=== PATIENT | female | born 1950 | race Two or more races ===

== ENCOUNTER → 2016-06-12 | Day surgery (SDC) | payer MEDICARE, OTHER ==
--- NOTE | 2016-06-11 17:59 | Pre-op HX & Phy Repo 2 SIG ---
DATE OF ADMISSION: 06/12/2016 DATE OF SURGERY: 06/12/2016 PREOPERATIVE DIAGNOSIS: Vitreous hemorrhage with aphakia left eye. BRIEF NOTE: This is a first [facility] admission for the patient who is a very nice 66-year-old lady complained of poor vision in the left eye. She had cataract surgery on that side several days ago which was complicated by vitreous hemorrhage and during the operation no lens implant was placed. She has a past history of severe diabetes with hypertension, elevated cholesterol. She is on dialysis. She is currently on atorvastatin, famotidine, gabapentin, Cynthia-Nevaeh, and ALLERGIES: She has no known allergies. SOCIAL HISTORY: She does not smoke or drink. PHYSICAL EXAMINATION: Best vision at the time of visit was light perception with projection in the right eye and bare light perception in the left. Pressures were 17 and 8. The anterior segment on the right showed a very dense nuclear sclerotic cataract. On the left, the anterior chamber was aphakic. There was a pterygium. No evidence of rubeosis was seen. The right fundus showed scattered old laser scars and a mild vitreous hemorrhage. The left could not be seen because of the dense hemorrhage. An ultrasound was done and showed a dense vitreous hemorrhage in the left eye but the retina appeared flat. ASSESSMENT: Severe diabetic vitreous hemorrhage, left eye with aphakia. PLAN: The plan is to perform a pars plana vitrectomy with membrane dissection as needed, Endolaser and Avastin injection, and insertion of a secondary lens implant. The risks and benefits of surgery gone over the patient with potential for infection, recurrent hemorrhage, retinal detachment, glaucoma, less than anticipated vision due to diabetic changes, the possibility of loss of the eye. The risk of anesthesia was discussed. The patient understands and consents to the surgery, which will be performed on tomorrow morning. Kenneth Overton M.D. DR: Shahnaz JOB#: [id number] CC:
[2016-06-12] VITALS (10 sets, daily range): BP systolic 151–201; BP diastolic 53–72
[~2016-06-12] VITALS: Ht 157.5 cm; Wt 50.8 kg
[~2016-06-12] MED LIST: ATORVASTATIN CA20 MG ORAL; Alfentanil 2ml Inj ONE; Atropine Inj 1mg/10ml Syr IV PRN; Avastin 10mg Inj IVITRE ONE; BSS 15ml BTL ONE; BSS 500ml btl ONE; Bupivacaine 0.75% 30ml vial INJ ONE; CALCIUM ACETAT667 M1 PO; COLY-MYCIN S OT10 ML OT; Carbachol 0.01% Op Soln 1.5ml vial ONE; Dexamethasone 4mg/ml vial ONE; DiphenhydrAMINE 50mg/ml Inj IVP PRN; EPINEPHrine 1mg/1ml Amp ONE; FAMOTIDINE20 MG ORAL; Hydromorphone 0.5mg/0.5ml inj IVP PRN; Kenalog-10 5ml Inj ONE; Kenalog-40 1ml Vial ONE; LORazepam Inj 2mg/ml 1ml IV PRN; LR 1000ml 1,000 ML IVLG SCH; Labetalol 5mg/ml 20ml vial IV PRN; Lidocaine 1% MPF 10mg/ml 5ml ONE; Lidocaine 2% MPF 5ml Vial INJ ONE; Maxitrol Opth Oint 3.5gm ONE; Meperidine 25mg/ml Inj IV PRN; Metoclopramide 10mg/2ml Inj IVP PRN; Midazolam 2mg/2ml Inj IVP PRN; Midazolam 2mg/2ml Inj ONE; NORMODYNE100 MG ORAL; NS Irrig 1000ml ONE; Norco 5mg/325mg tab ORAL PRN; Norco 7.5mg/325mg tab ORAL PRN; Oxycodone/Acetaminophen 5-325 ORAL PRN; Pilocarpine 2% Opth Soln ONE; Povidone-Iodine 5% opth solution ONE; Pred Forte 1% Opth Susp 1ml LEFT EYE ONE; Propofol 10mg/ml 20ml IV ONE; RENA-VITE RX T1 EAC1 PO; Sodium Hyaluronate 10 mg/ml 0.85ml ONE; Sterile Water Irrig 1000ml IRRIG ONE; Tetracaine 0.5% Opth Soln ONE; fentaNYL 100 mcg/2 mL IV PRN
--- NOTE | 2016-06-12 06:18 | Pre-Procedure Note/Attestation ---
Pre-Procedure Note/Attestation Complete Prior to Procedure Planned Procedure: left Procedure Narrative: PPV, membrane peel, endolaser, Avastin injection, placement of AC lens, left eye Indications for Procedure Pre-Operative Diagnosis: Vitreous heme with traction, aphakia, L eye Attestation I attest that I discussed the nature of the procedure; its benefits; risks and complications; and alternatives (and the risks and benefits of such alternatives ), prior to the procedure, with the patient (or the patient's legal financial foundations representative). I attest that, if there was a reasonable possibility of needing a blood transfusion, the patient (or the patient's legal financial foundations representative) was given the [place] [employer] standardized written summary, pursuant to the Taiwo Luan Blood Safety Act ([place] Health and Safety Code # 1645, as amended). I attest that I re-evaluated the patient just prior to the surgery and that there has been no change in the patient's H&P, except as documented below: MICHAEL FERRER Jun 12, 2016 06:18
[2016-06-12] MEDS: Phenylephrine 2.5% Op Soln LEFT EYE SCH ×3 (07:10→08:09)
[2016-06-12] MEDS: Flurbiprofen 0.03% Opth Sol 2.5ml LEFT EYE SCH ×3 (07:10→08:09)
[2016-06-12] MEDS: Cyclopentolate 1% Opth Sol LEFT EYE SCH ×3 (07:10→08:09)
[2016-06-12] MEDS: Gatifloxacin Opth Solution 0.5% LEFT EYE SCH ×3 (07:10→08:09)
[2016-06-12 07:38] LABS: BASOPHILS % (AUTO) 2.5 % (0.0-2.0); EOSINOPHILS % (AUTO) 3.6 % (0.0-3.0); MEAN CORPUSCULAR HGB CONC 32.8 G/DL (32.0-36.0); MEAN CORPUSCULAR VOLUME 104 FL (80-99); MEAN PLATELET VOLUME 5.8 FL (6.5-10.1); MONOCYTES % (AUTO) 16.3 % (1.0-10.0); NEUTROPHILS % (AUTO) 55.6 % (45.0-75.0); PLATELET COUNT 137 K/UL (150-450); RED BLOOD COUNT 3.62 M/UL (4.20-5.40); RED CELL DISTRIBUTION WIDTH 17.1 % (11.6-14.8); WHITE BLOOD COUNT 3.8 K/UL (4.8-10.8)
[2016-06-12 07:52] LABS: CALCIUM 8.3 mg/dL (8.6-10.2); CREATININE 7.2 mg/dL (0.5-0.9); GLOMERULAR FILTRATION RATE 5.7 mL/min (>60)
--- NOTE | 2016-06-12 08:59 | Anethesia Preoperative Eval ---
Anesthesia Pre-op PMH/ROS General Date of Evaluation: Jun 12, 2016 Time of Evaluation: 08:29 Anesthesiologist: Rey ASA Score: ASA 3 Mallampati Score Class I : Soft palate, uvula, fauces, pillars visible Class II: Soft palate, uvula, fauces visible Class III: Soft palate, base of uvula visible Class IV: Only hard plate visible Mallampati Classification: Class II Surgeon: Brooklynn Diagnosis: Aphakia OS Surgical Procedure: Vitrectomy OS Anesthesia History: none Family History: no anesthesia problems Allergies: Coded Allergies: No Known Allergies (Unverified , 06/07/16) Medications: see eMAR Past Medical History Cardiovascular: Reports: HTN, other - HL Gastrointestinal/Genitourinary: Reports: ESRD - Dialysis 3XWeek Endocrine: Reports: DM HEENT: Reports: other - Aphakia OS Hematology/Immune: Reports: anemia PSxH Narrative: L BKA, R Arm Shunt Anesthesia Pre-op Phys. Exam Physician Exam Last Vital Signs Date Time Temp Pulse Resp B/P Pulse Ox O2 Delivery O2 Flow Rate FiO2 06/12/16 08:13 59 18 190/72 99 Room Air 06/12/16 07:36 97.5 Constitutional: NAD Neurologic: CN 2-12 intact Cardiovascular: RRR Respiratory: CTA Gastrointestinal: S/NT/ND Airway Exam Mallampati Score: Class II MO: limited ROM: limited Teeth: intact Anesthesia Pre-op A/P Labs Hematology Test 06/12/16 07:30 White Blood Count 3.8 K/UL (4.8-10.8) L Red Blood Count 3.62 M/UL (4.20-5.40) L Hemoglobin 12.3 G/DL (12.0-16.0) Hematocrit 37.6 % (37.0-47.0) Mean Corpuscular Volume 104 FL (80-99) H Mean Corpuscular Hemoglobin 34.0 PG (27.0-31.0) H Mean Corpuscular Hemoglobin Concent 32.8 G/DL (32.0-36.0) Red Cell Distribution Width 17.1 % (11.6-14.8) H Platelet Count 137 K/UL (150-450) L Mean Platelet Volume 5.8 FL (6.5-10.1) L Neutrophils (%) (Auto) 55.6 % (45.0-75.0) Lymphocytes (%) (Auto) 22.0 % (20.0-45.0) Monocytes (%) (Auto) 16.3 % (1.0-10.0) H Eosinophils (%) (Auto) 3.6 % (0.0-3.0) H Basophils (%) (Auto) 2.5 % (0.0-2.0) H Chemistry Test 06/12/16 07:30 Sodium Level 129 mEQ/L (135-145) L Potassium Level 5.0 mEQ/L (3.4-4.9) H Chloride Level 88 mEQ/L (98-107) L Carbon Dioxide Level 18 mEQ/L (20-30) L Anion Gap 23 (5-15) H Blood Urea Nitrogen 101 mg/dL (7-23) H Creatinine 7.2 mg/dL (0.5-0.9) H Estimat Glomerular Filtration Rate 5.7 mL/min (>60) Glucose Level 100 mg/dL (74-106) Calcium Level 8.3 mg/dL (8.6-10.2) L Risk Assessment & Plan Assessment: ASA 3 Plan: GA Status Change Before Surgery: Aniceto Chen MD Jun 12, 2016 08:59
--- NOTE | 2016-06-12 09:01 | 48 Hour Post Anesthesia Eval ---
Post Anesthesia Evaluation Procedure: Vitrectomy OS Date of Evaluation: Jun 12, 2016 Time of Evaluation: 12:57 Blood Pressure Systolic: 174 0: 71 Pulse Rate: 58 Respiratory Rate: 18 Temperature (Fahrenheit): 98.6 O2 Sat by Pulse Oximetry: 99 Airway: patent Nausea: No Vomiting: No Pain Intensity: 1 Hydration Status: adequate Cardiopulmonary Status: Stable Mental Status/LOC: patient returned to baseline Follow-up Care/Observations: 0 Post-Anesthesia Complications: 0 Follow-up care needed: ready to discharge Aniceto Le MD Jun 12, 2016 09:01
--- NOTE | 2016-06-12 09:01 | Immediate Post-Op Evaluation ---
Immediate Post-Op Evalulation Immediate Post-Op Evalulation Procedure: Vitrectomy OS Date of Evaluation: Jun 12, 2016 Time of Evaluation: 10:54 IV Fluids: 500 NS Blood Products: 0 Estimated Blood Loss: 1 Urinary Output: 0 Blood Pressure Systolic: 168 Blood Pressure Diastolic: 68 Pulse Rate: 57 Respiratory Rate: 16 O2 Sat by Pulse Oximetry: 96 Temperature (Fahrenheit): 98.6 Pain Score (1-10): 1 Nausea: No Vomiting: No Complications 0 Patient Status: awake, reacts, patent, none Hydration Status: adequate Aniceto Le MD Jun 12, 2016 09:01
--- NOTE | 2016-06-12 10:47 | Brief Operative Note ---
Immediate Post Operative Note Operative Note Chief Complaint: Dark vision Left eye Pre-op Diagnosis: Vitreous heme with traction, aphakia, L eye Procedure: PPV, membrane peel, endolaser 1762 spots, Kenalog injection, insertion of AC IOL (20.5 D 12.5 mm diameter) Avastin injection Left eye Post-op Diagnosis: same as pre-op Surgeon: gideon Anesthesiologist: Rey Anesthesia: MAC Specimen: none Complications: none Condition: stable Estimated Blood Loss: none Drains: none Implant(s) used?: Yes - AC IOL see above MICHAEL FERRER Jun 12, 2016 10:47
--- NOTE | 2016-06-12 14:39 | Pre-op HX & Phy Repo 2 SIG ---
DATE OF ADMISSION: 06/12/2016 REASON FOR EVALUATION: I was asked by Dr. Kenneht Overton to see this 66-year-old, Yakut-speaking female, who is going for elective surgery on the left eye. The patient has left eye. Please see full ophthalmology history and physical by Dr. Kenneth Overton. The patient was evaluated, chart reviewed. Information obtained from daughter by bedside. PAST MEDICAL HISTORY/REVIEW OF SYSTEMS: Remarkable for hypertension, diabetes mellitus type 2, anemia, and end-stage renal disease. The patient is on hemodialysis, last dialysis done on 06/10/2016. The patient has also history of hyperlipidemia. Denied thyroid problem. No history of heart attack, chest pain, or palpitations. No respiratory problem. 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 The patient is on dialysis for a year and a half. FAMILY HISTORY: Both parents of old age at sleep. ALLERGIES: Not known. PRESENT MEDICATIONS: Include calcium acetate 667 milligram 3 times a day, Cynthia-Nevaeh, Pepcid 20 mg twice a day, atorvastatin 20 mg daily, labetalol 100 milligrams daily. HABITS: The patient denies history of smoke or alcohol habits. No street drugs. PHYSICAL EXAMINATION: GENERAL: Alert, well-developed, well-nourished, small-framed female in her 60s. No acute distress. The patient's BMI is 20.5 kilogram/meter squared. VITAL SIGNS: Blood pressure 195/73, temperature 97.5, pulse 59 and regular, respirations 16, and O2 saturation 94%. SKIN: Dry, clear, warm, pale. No rashes. LYMPH NODES: Not enlarged. HEENT: Head normocephalic. Ears, clear. Eyes, full description per Dr. Kenneth Overton. Mouth clear and moist. No dentures. NECK: Trachea midline. No jugular vein distention. No carotid artery bruits. CHEST: No deformity or asymmetry. Lungs clear. No rales or wheezing. No rhonchi. HEART: Heart rate is regular. No murmur. No S3 or S4. ABDOMEN: Soft, benign. No palpable mass. No rebound. EXTREMITIES: Left below-knee amputation. The left arm AV shunt for dialysis. No peripheral edema. No varicose vein on the right. GENITOURINARY TRACT: Normal for gender. Oliguria. The patient is on hemodialysis three times a week. CVA nontender. NERVOUS SYSTEM: No asymmetry. No tremor. Electrocardiogram, sinus bradycardia, nonspecific T-wave abnormality. LABORATORY AND DIAGNOSTIC DATA: White blood cells 8,800, hemoglobin 12.3, hematocrit 37.6. Sodium 129, potassium 5.0, BUN creatinine of 7.2, blood sugar 100. IMPRESSION: 1. Aphakia, left eye. 2. Hypertension. 3. Diabetes mellitus type 2. 4. End-stage renal disease, on hemodialysis, last dialysis was June 10, 2016. 5. Hyperlipidemia. PLAN: Pars plana vitrectomy, 23G membrane peel per Dr. Kenneth Overton. CONCLUSION: The patient has multiple medical problems of end-stage renal disease and hypertension. The patient is on dialysis. Her laboratory work shows low sodium and elevated potassium. The patient did not eat or drink from last night. The patient's condition optimized for surgery. Carlos Gordon M.D. DR: Sandy JOB#: [id number] CC:
--- NOTE | 2016-06-12 16:03 | Cardiology Report ---
APPROVED REPORT EKG Measurement Heart [id number] HI [id number] Sinus bradycardia Nonspecific T wave abnormality Abnormal ECG
--- NOTE | 2016-06-12 17:59 | Operative Note - Dictated ---
DATE OF OPERATION: 06/12/2016 PREOPERATIVE DIAGNOSIS: Vitreous hemorrhage with traction and aphakia, left eye. POSTOPERATIVE DIAGNOSIS: Vitreous hemorrhage with traction and aphakia, left eye. PROCEDURES: 1. Pars plana vitrectomy. 2. Extensive membrane dissection. 3. Endolaser. 4. Kenalog injection. 5. Implantation of secondary IOL. 6. Avastin injection left eye. SURGEON: Kenneth Overton M.D. SOCIAL SERVICES SPECIALIST: None. ANESTHESIA: Local sedation, Dr. Le. JUSTIFICATION FOR SURGERY: This 66-year-old lady with a long history of diabetes developed a cataract. During the operation, she was noted to have a dense vitreous hemorrhage and no lens implant was inserted after the cataract removed. BRIEF NOTE: The patient was brought to the operating room, placed on operating room table in supine position. After a time-out was performed and agreed upon by the staff, and initial monitoring secured by Dr. Le, retrobulbar and Van Lint blocks given in the standard way. When the blocks taken effect, she was prepped and draped in normal manner. A lid speculum was inserted to the left eye. Using a 23-gauge trocar system, a cannula was placed in inferotemporal quadrant. A superior peritomy was cut from the 10 to 2 o'clock position with relaxation incisions in either end. Two additional cannulas were placed and bare sclera at 10 and 2. Infusion secured inferotemporally. Vitrectomy was then begun posterior to the plane of the iris. A central capsulotomy was cut and dense vitreous blood in the fashion of a core vitrectomy was removed. Visualization of the retina was then noted and there appeared to be sclerosis of many of the vessels, but the retina appeared viable. There was a large area of the adhesion superior and temporal to the optic nerve, roughly two disc diameters where the bulk of the traction neovascularization emanated. This area was localized and with a membrane pick and a vitreous cutter, the traction was shade and flush with the retina. Small bleeders were controlled with the cautery. A dense epiretinal membrane was then engaged with intraocular forceps and this was elevated from the macula and surrounding area leaving a clean posterior pole. The vitrectomy was then carried further peripherally leaving a moderate vitreous skirt. The retina appeared somewhat ischemic, but all attached. The endolaser was then brought to the eye and a power of 0.3 slater and duration 0.2 seconds, a total of 1752 lesions were applied in a broad band of panretinal laser extending from near the ora patti to just posterior to the equator. The area traction was surrounded with laser. Of note, the instruments were removed from the eye and preparation was made to place an anterior intraocular lens. The white to white measurement was noted to be 11 millimeters, so a 12.5 mm lens was chosen with 20 diopter power. A 6.5 millimeter groove was cut superiorly with a #64 [place] blade and the sclera just posterior to the surgical limbus, a keratome was then used to enter the anterior chamber at an angle and extend the wound from end to end. Healon was then reduced into the anterior chamber as well as a lens glide. The lens was then inserted into position without difficulty. The 10-0 nylon sutures, four in total were used to close the superior wound. The knots were buried. The Healon was evacuated from the eye and Miochol was introduced. Peripheral iridotomies were cut at 10 and 2. The pupil was noted to round nicely with the lens being secured in place and the anterior chamber angle. At this juncture, conjunctiva and tenons capsule were brought up and secured at 10 and 2 with interrupted 6-0 plain catgut sutures. Prior to this, the superior cannulas had been removed and the sclerotomies was closed with 8-0 Vicryl. Through the infusion cannula, Avastin 1.25 mg was injected. The cannulas were removed and his wound was noted to be self-sealing. It should be noted that during the procedure, the corneal epithelium was removed with #64 [place] blade for improved visualization. At this juncture, subconjunctival Decadron and gentamicin were then injected and pilocarpine, prednisolone and gatifloxacin drops were instilled. Maxitrol ointment was then placed and the eye was patched and shielded. The patient was taken to recovery in excellent condition. No complications. Kenneth Overton M.D. DR: ADAN JOB#: [id number] CC: Kenneth Overton M.D.
== END | disposition home or self-care (01) ==
LOC: SUR 06:06
DX: H43.12 Vitreous hemorrhage, left eye (principal); H43.822 Vitreomacular adhesion, left eye; H27.02 Aphakia, left eye; I12.0 Hypertensive chronic kidney disease with stage 5 chronic kidney disease or end stage renal disease; N18.6 End stage renal disease; Z99.2 Dependence on renal dialysis; E11.9 Type 2 diabetes mellitus without complications; D64.9 Anemia, unspecified; E78.5 Hyperlipidemia, unspecified; R00.1 Bradycardia, unspecified; Z89.512 Acquired absence of left leg below knee
CPT/HCPCS: 36415; 66985; 67041; 80048; 82962; 85025; 93005; J0171; J1100; J2250; J2704; J3301; J3490; J9035; V2632; 94003; 94150